=== PATIENT | male | born 2000 | race Caucasian/White ===

== ENCOUNTER 2019-06-26 22:07 | Inpatient (IN) ==
[2019-06-26 23:09] LABS: Basophils % 0.3 %; Eosinophils % 0.2 %; Hematocrit 43.9 % (37.5-50.1); Hemoglobin 15.1 g/dL (12.9-16.9); Immature Granulocytes % 0.2 % (0-4); Lymphocytes # 1.9 K/mcL (0.6-4.6); Lymphocytes % 20.9 %; Mean Corpuscular HGB Conc 34.4 g/dL (31.6-35.5); Mean Corpuscular Hemoglobin 31.7 pg (28.0-33.3); Mean Corpuscular Volume 92.2 fL (83.0-100.0); Mean Platelet Volume 10.1 fL (9.4-12.4); Monocytes # 0.7 K/mcL (0.0-1.3); Monocytes % 7.8 %; Neutrophils # 6.4 K/mcL (1.6-8.9); Platelet Count 235 K/mcL (140-400); Red Blood Count 4.76 M/mcL (4.19-5.50); Red Cell Distribution Width 13.3 % (11.5-14.5); Segmented Neutrophils % 70.6 %; White Blood Count 9.1 K/mcL (4.3-11.1)
[2019-06-26 23:19] LABS: Bilirubin,Urine Negative (Negative); Blood,Urine Negative (Negative); Clarity,Urine Turbid (Clear); Color,Urine Yellow (Yellow); Glucose,Urine (UA) Normal (Normal); Ketones,Urine Negative (Negative); Leukocyte Esterase,Urine Negative (Negative); Nitrite,Urine Negative (Negative); Protein,Urine 30 mg/dL (Neg-Trace); Specific Gravity,Urine 1.024 (1.010-1.025); Urobilinogen,Urine Normal (Normal)
[2019-06-26 23:28] LABS: Acetaminophen < 10 mcg/mL (10-20); BUN/Creatinine Ratio 9 (6-26); Blood Urea Nitrogen 7 mg/dL (6-20); Calcium 8.9 mg/dL (8.6-10.3); Carbon Dioxide 29 mEq/L (23-29); Chloride 106 mEq/L (98-107); Ethanol < 10 mg/dL (Less than 10); Glucose 127 mg/dL (70-105); Osmolality,Calculated 292 (280-300); Potassium 3.5 mEq/L (3.5-5.1); Salicylate < 2.5 mg/dL (15.0-30.0); Sodium 141 mEq/L (136-145); eGFR For African Americans > 60; eGFR For Non-African Americans > 60
[2019-06-26 23:31] LABS: Amphetamine Screen,Urine Negative ng/mL (Cutoff=1000); Barbiturate Screen,Urine Negative ng/mL (Cutoff=200); Benzodiazepines Screen,Urine Negative ng/mL (Cutoff=200); Cannabinoid Screen,Urine Negative ng/mL (Cutoff = 50); Cocaine Screen,Urine Negative ng/mL (Cutoff= 300); Opiate Screen,Urine Negative ng/mL (Cutoff=300); Phencyclidine Screen,Urine Negative ng/mL (Cutoff=25)
[2019-06-26 23:32] LABS: Bacteria,Urine None Seen per hpf (None-Few); Hyaline Casts,Urine None Seen per lpf (None-Few); RBC,Urine 0-3 per hpf (0-3); Squamous Epithelial Cell,Urine Many per lpf (None-Few)
[2019-06-27] MEDS ORDERED: *HR* LORazepam 1 MG TABLET PO PRN (03:32)
[2019-06-27] MEDS ORDERED: *HR* LORazepam 2 MG/ML VIAL IM PRN (03:32)
[2019-06-27] MEDS ORDERED: Mag Hydrox/Al Hydrox/Simeth 30 ML UDC PO PRN (03:32)
[2019-06-27] MEDS ORDERED: Ibuprofen 400 MG TABLET PO PRN (03:32)
[2019-06-27] MEDS ORDERED: Haloperidol Lactate 5 MG/ML VIAL IM PRN (03:32)
[2019-06-27] MEDS ORDERED: MOM Conc 10 ML UD.LIQ PO PRN (03:32)
[2019-06-27] MEDS ORDERED: traZODone 50 MG TABLET PO PRN (03:32)
[2019-06-27] MEDS ORDERED: hydrOXYzine pamoate 25 MG CAPSULE PO PRN (03:32)
[2019-06-27 12:28] LABS: Thyroid Stimulating Hormone 0.996 mcIU/mL (0.340-5.600)
[2019-06-27] MEDS ORDERED: Nicotine 2 MG GUM BC PRN (15:54)
[2019-06-27] MEDS: Nicotine 21 MG PATCH.TD24 TD SCH (18:49)
[2019-06-27] MEDS: traZODone 50 MG TABLET PO SCH (20:27)
[2019-06-28] MEDS: Nicotine 21 MG PATCH.TD24 TD SCH (09:06)
[2019-06-28] MEDS: traZODone 50 MG TABLET PO SCH (20:46)
[2019-06-29] MEDS: Nicotine 21 MG PATCH.TD24 TD SCH (09:38)
[2019-06-29 10:28] VITALS: BP 128/78
== END 2019-06-29 13:30 | disposition home or self-care (01) | DRG 885 ==
LOC: EMEROOARM 22:07 → 1ANU 06-27 03:15 → INTOOBSV 06-27 03:23 → 1ANU 06-27 03:23
PROVIDERS: ADMIT Psychiatry & Neurology Psychiatry; ATTEND Psychiatry & Neurology Psychiatry